=== PATIENT | female | born 1995 | race Caucasian/White ===

== ENCOUNTER 2017-01-10 17:10 | Emergency (ER) | payer SELFPAY ==
[~2017-01-10 17:10] MED LIST: ALBUTEROL 0.5ML; ALBUTEROL17 GM INH; AMOXICILLIN500 M1 PO; AUGMENTIN875 MG PO; BACTRIM DS TABL1 TA1 PO; BACTROBAN22 GM TOP; FAMVIR250 MG PO; IBUPROFEN600 MG PO; MILLIPRED5 MG PO; MOTRIN600 MG PO; NO MEDICATIONS; PHENERGAN25 M1 PO; PREDNISONE; SINGULAIR PO; TYLENOL #3 PO; VOLTAREN PO; VOLTAREN75 MG; ZITHROMAX PO
[2017-01-10 18:02] LABS: BASOPHIL# 0.1 X10e3 (0-0.3); EOSINOPHIL# 0.1 X10e3 (0-0.7); EOSINOPHIL% 1.8 % (0.0-7.0); HEMATOCRIT 41.7 % (35.0-45.0); HEMOGLOBIN 13.5 gm/dL (12.0-16.0); LYMPHOCYTE# 2.6 X10e3 (1.0-3.5); LYMPHOCYTE% 34.2 % (17.0-45.0); MEAN CELL VOLUME 89.4 FL (83-96); MEAN CORPUSCULAR HGB CONC 32.4 g/dL (30-36); MEAN PLATELET VOLUME 9.8 FL (6.5-11.5); MONOCYTE# 0.4 X10e3 (0-1.0); MONOCYTE% 4.7 % (3.0-12.0); NEUTROPHIL# 4.4 X10e3 (1.5-7.1); NEUTROPHIL% 58.3 % (40-75); PLATELET COUNT 242 X10e3 (140-420); RED BLOOD COUNT 4.67 X10e (3.90-5.30); RED CELL DISTRIBUTION WIDTH 12.5 % (11.0-15.5); WHITE BLOOD COUNT 7.5 X10e3 (4.0-10.5)
[2017-01-10 18:17] LABS: DIFF IND NO
[2017-01-10 18:31] LABS: ALBUMIN SERUM 3.7 g/dL (3.5-5.0); BILIRUBIN, DIRECT 0.2 mg/dL (0.0-0.2); BILIRUBIN,INDIRECT 0.7 mg/dL (0.0-0.9); BILIRUBIN,TOTAL 0.9 mg/dL (0.2-2.0); BUN/CREATININE RATIO 16.66; CALCIUM SERUM 8.9 mg/dL (8.4-10.2); CREATININE SERUM 0.6 mg/dL (0.6-1.4); GLOM FILT RATE Estimated 130.3 mL/min (>60); POTASSIUM 3.5 mmol/L (3.5-5.1); PROTEIN TOTAL SERUM 7.1 g/dL (6.0-8.3)
[2017-01-10 18:52] LABS: URINE SOURCE CLEAN CATCH
[2017-01-10 19:14] LABS: URINE APPEARANCE CLOUDY; URINE BILIRUBIN NEG (NEG); URINE BLOOD NEG (NEG); URINE COLOR YELLOW; URINE GLUCOSE 100 MG/DL (NEG); URINE KETONE NEG (NEG); URINE LEUKOCYTE ESTERASE TRACE (NEG); URINE NITRATE NEG (NEG); URINE PH 6.5 (5-8); URINE PROTEIN NEG (NEG); URINE SPECIFIC GRAVITY 1.025 (1.003-1.035)
[2017-01-10 19:17] LABS: CULTURE INDICATED? YES; URINE BACTERIA AUWI 4+ (NEGATIVE); URINE SQUAMOUS EPITHELIAL CELL MOD /[HPF]
== END 2017-01-10 19:45 | disposition home or self-care (01) ==
LOC: CED 17:10
PROVIDERS: Emergency Medicine
DX: K80.50 Calculus of bile duct without cholangitis or cholecystitis without obstruction (principal); R73.9 Hyperglycemia, unspecified; J45.909 Unspecified asthma, uncomplicated
CPT/HCPCS: 36415; 80048; 80076; 81003; 82150; 83690; 84703; 85025; 87086; 87088; 87186; 96361; 96374; 96375; 99284; J2270; J2405

== ENCOUNTER 2017-01-19 21:28 | Emergency (ER) | payer SELFPAY ==
--- NOTE | ~2017-01-19 | US67 ---
[facility] A Service [facility] RADIOLOGY TEXT RESULTS PATIENT: EARNESTINE CABEZAS LOCATION: SED : 95 UNIT #: [id number] AGE: [address]: Chu Medina MD SEX: F ORDER DR: [id number] [address] [address] [id number] E MR#: [id number] Acc #: [id number] NAME: EARNESTINE CABEZAS. : 1995 SEX: F STUDY DATE/TIME: 01/19/2017 22:51 UNIT: SED ROOM: STUDY DESCRIPTION: US Gallbladder Attending Physician: Chu Medina M.D. Ordering Physician: Chu Medina M.D. Primary Care Physician: Primary Care Physician No MEDICAL IMAGING REPORT This report is preliminary unless electronic signature is present. EXAM Gallbladder ultrasound INDICATION Intermittent right upper quadrant pain for 2 to 3 months which is worsening over the last 7 hours. FINDINGS Ultrasound images of the right upper quadrant were obtained. The study is suboptimal due to the patient's size. Pancreas cannot be seen. The liver is only partially visualized and appears to be increased in echogenicity. The gallbladder is adequately distended and no stones are identified. No biliary distension is visible. The right kidney is only partially seen and does not show any hydronephrosis. IMPRESSION The study is limited by the patient's size but the gallbladder is visualized and there are no stones visible and there is no biliary distension. The visualized portions of the liver show increased echogenicity. Dictated by... William Dobson M.D. THIS IS AN ELECTRONICALLY VERIFIED REPORT William Dobson M.D. at 01/21/2017 5:01 AM KECIA/galina TD: 01/20/2017 23:49 JOB #: [id number] [facility] A Service [facility] RADIOLOGY TEXT RESULTS PATIENT: EARNESTINE CABEZAS LOCATION: SED : 95 UNIT #: [id number] AGE: [address]: Chu Medina MD SEX: F ORDER DR: MEDICAL IMAGING REPORT Page 1 of 1
[2017-01-19] MEDS ORDERED: METFORMIN (21:36)
[2017-01-19 22:12] LABS: URINE SOURCE CLEAN CATCH
[2017-01-19 22:16] LABS: BASOPHIL% 0.6 % (0-2.5); EOSINOPHIL# 0.1 X10e3 (0-0.7); EOSINOPHIL% 1.7 % (0.0-7.0); HEMATOCRIT 40.5 % (35.0-45.0); HEMOGLOBIN 13.6 gm/dL (12.0-16.0); LYMPHOCYTE# 2.6 X10e3 (1.0-3.5); LYMPHOCYTE% 36.5 % (17.0-45.0); MEAN CELL VOLUME 88.2 FL (83-96); MEAN CORPUSCULAR HEMOGLOBIN 29.6 PG (28-34); MEAN CORPUSCULAR HGB CONC 33.6 g/dL (30-36); MEAN PLATELET VOLUME 9.1 FL (6.5-11.5); MONOCYTE# 0.4 X10e3 (0-1.0); MONOCYTE% 5.3 % (3.0-12.0); NEUTROPHIL# 3.9 X10e3 (1.5-7.1); NEUTROPHIL% 55.9 % (40-75); PLATELET COUNT 258 X10e3 (140-420); RED CELL DISTRIBUTION WIDTH 12.9 % (11.0-15.5)
[2017-01-19 22:16] LABS: URINE APPEARANCE HAZY; URINE BLOOD NEG (NEG); URINE COLOR YELLOW; URINE GLUCOSE NEG (NORM); URINE KETONE TRACE (NEG); URINE LEUKOCYTE ESTERASE TRACE (NEG); URINE NITRATE NEG (NEG); URINE PH 5.5 (5-8); URINE PROTEIN NEG (NEG); URINE SPECIFIC GRAVITY >=1.030 (1.003-1.035)
[2017-01-19 22:19] LABS: DIFF IND NO
[2017-01-19 22:24] LABS: CULTURE INDICATED? YES; MICRO INDICATED? YES; URINE BACTERIA NEG (NEG); URINE BILIRUBIN NEG (NEG); URINE RBC 0-2 /[HPF] (0-2)
[2017-01-19 22:25] LABS: URINE CRYSTALS CALCIUM OXALATE /[HPF]; URINE MUCUS PRESENT; URINE SQUAMOUS EPITHELIAL CELL MODERATE /[HPF]
[2017-01-19 22:35] LABS: ALBUMIN SERUM 3.9 g/dL (3.5-5.0); BILIRUBIN, DIRECT 0.1 mg/dL (0.0-0.2); BILIRUBIN,INDIRECT 0.4 mg/dL (0.0-0.9); BILIRUBIN,TOTAL 0.5 mg/dL (0.2-2.0); BUN/CREATININE RATIO 14.44; CALCIUM SERUM 9.4 mg/dL (8.4-10.2); CREATININE SERUM 0.9 mg/dL (0.6-1.4); GLOM FILT RATE Estimated 91.5 mL/min (>60); PROTEIN TOTAL SERUM 7.4 g/dL (6.0-8.3)
== END 2017-01-19 23:54 | disposition home or self-care (01) ==
LOC: SED 21:28
PROVIDERS: Emergency Medicine
DX: R10.11 Right upper quadrant pain (principal); E11.9 Type 2 diabetes mellitus without complications; J45.909 Unspecified asthma, uncomplicated
CPT/HCPCS: 36415; 76705; 80048; 80076; 81003; 82150; 83690; 84703; 85025; 87086; 96361; 96374; 96375; 99284; J1170; J2405

== ENCOUNTER 2017-02-26 20:31 | Emergency (ER) | payer OTHER ==
[~2017-02-26] VITALS: Ht 157.5 cm; Wt 127.0 kg
[~2017-02-26 20:31] MED LIST changes: +METFORMIN
[2017-02-26] MEDS ORDERED: NO MEDICATIONS (20:42)
== END 2017-02-26 21:51 | disposition home or self-care (01) ==
LOC: SED 20:31
DX: J02.0 Streptococcal pharyngitis (principal); E11.9 Type 2 diabetes mellitus without complications; J45.909 Unspecified asthma, uncomplicated
CPT/HCPCS: 87880; 96372; 99283; J0561